=== PATIENT | male | born 1980 | race Caucasian/White ===

== ENCOUNTER 2022-12-06 10:11 | Outpatient (CLI) | payer OTHER, SELFPAY ==
[2022-12-06 10:32] VITALS: PULSE 77; RESP 18; O2SAT 98
[2022-12-06] MEDS: albuterol 2.5 mg/3 mL Neb INHALATION (10:32)
[2022-12-06 10:37] VITALS: PULSE 80
--- NOTE | 2022-12-06 10:55 | XR_ITS ---
WS: [id number] XR chest 2V* [id number] REASON FOR EXAM: ASTHMA FINDINGS: Normal mediastinum and thoracic aorta. Normal heart size. Calcified granulomatous disease in both hemithoraces. No active pulmonary parenchymal or pleural abnormality. The lungs do not appear hyperexpanded. Bony thorax is intact. Mild changes of degenerative spondylosis in the mid and lower thoracic spine. XR/XR chest 2V* [id number] IMPRESSION: No significant abnormality.
== END 2022-12-06 10:12 | disposition home or self-care (01) ==
PROVIDERS: Visit Provider Chiropractor
DX: J45.909 Unspecified asthma, uncomplicated (principal)
CPT/HCPCS: 71046; 94060; J7613